=== PATIENT | male | born 1945 | race Caucasian/White ===

== ENCOUNTER → 2019-11-25 10:54 | Outpatient (CLI) | payer OTHER, SELFPAY ==
--- NOTE | ~2019-11-25 | XR_ITS ---
EXAMINATION: XR chest 2V EXAM DATE: 11/25/2019 11:11 INDICATION: Cough, shortness of breath. TECHNIQUE: Frontal and lateral projections of the chest obtained and reviewed. Comparison is made to prior examination from 10/26/2013. FINDINGS: The lungs are clear. There are no pleural effusions. The cardiomediastinal silhouette is within normal limits. There is no pneumothorax suspected. There are mild bony degenerative changes. There are cholecystectomy clips. There is no significant interval change. IMPRESSION: No acute cardiopulmonary findings. Reviewed, dictated and finalized at location B. DING MECHANIC
== END ==
PROVIDERS: PCP Family Medicine; Visit Provider Nurse Practitioner Family
DX: R05 Cough (principal)
CPT/HCPCS: 71046

== ENCOUNTER 2020-01-21 09:14 | Outpatient (CLI) | payer OTHER, SELFPAY ==
--- NOTE | ~2020-01-21 | CT_ITS ---
EXAMINATION: CT soft tissue neck w con DATE: 01/21/2020 10:37 INDICATION: Abnormal results of pulmonary function studies. TECHNIQUE: Computed tomography (CT) of the neck was performed with 75 mL Omnipaque-350 intravenous co ntrast. Automated exposure control and iterative reconstruction technique were employed. The dose-abdon gth product was 511.72 mGy-cm. COMPARISON: Chest CT 05/07/2019 FINDINGS: There is mild emphysema. There is plaque in the proximal internal carotid arteries with les s than 50% stenosis relative to normal distal artery lumen diameters. There are no pathologically enl arged lymph nodes. There is severe cervical spondylosis. IMPRESSION: 1. Mild emphysema. Reviewed, dictated and finalized at location A. IMPRESSION: 1. Mild emphysema.
[2020-01-21 10:24] LABS: Estimated Glomerular Filt Rate > 60
== END 2020-01-21 09:15 | disposition home or self-care (01) ==
PROVIDERS: PCP Family Medicine; Visit Provider Physician Assistant Medical
DX: R94.2 Abnormal results of pulmonary function studies (principal); J43.9 Emphysema, unspecified
CPT/HCPCS: 36415; 70491; Q9967

== ENCOUNTER 2020-02-04 07:05 | Outpatient (CLI) | payer OTHER, SELFPAY ==
--- NOTE | 2020-02-04 07:12 | ECHO_ITS ---
Patient Info Name: Tiago Levi Age: 74 years : 1945 Gender: Male Ht: 71 in Wt: 225 lbs BSA: 2.29 m2 HR: 61 bpm BP: 153 / 91 mmHg Technical Quality: Good Exam Date: 02/04/2020 8:06 AM Exam Location: [facility] Patient Status: Outpatient Admit Date: 02/04/2020 Staff Ordering Physician: Imelda Greene PAC Topology Professor: John Shultz RDCS, RT Attending Provider: Imelda Greene PAC Referring Physician: Jc CALHOUN; Exam Type: CA echo doppler color flow Study Info Indications R06.02 - Shortness of breath Complete two-dimensional, color flow and Doppler transthoracic echocardiogram is performed. Summary 1. Left ventricular chamber dimension is normal. 2. Left ventricular systolic function is normal, estimated at 60-65%. 3. The left ventricular diastolic function is grade I diastolic dysfunction. 4. E/e' 5 is not elevated. 5. There is mild aortic valve regurgitation. 6. The aortic root size at the sinus of Valsalva is mildly dilated at 4.4 cm. Left Ventricle E/e' 5 is not elevated. Left ventricular chamber dimension is normal. Left ventricular systolic function is normal, estimated at 60-65%. The left ventricular diastolic function is grade I diastolic dysfunction. Right Ventricle Right ventricular chamber dimension is normal. Right ventricular systolic function is normal. Left Atria Left atrial chamber dimension is normal. Right Atria Right atrial chamber dimension is normal. Aortic Valve The aortic valve is trileaflet. There is no aortic valve stenosis. There is mild aortic valve regurgitation. Pulmonic Valve There is no pulmonic regurgitation. Mitral Valve There is no mitral valve stenosis. There is no mitral valve regurgitation. Tricuspid Valve There is no tricuspid valve regurgitation. Pericardium/Pleural There is no pericardial effusion. Inferior Vena Cava Normal inferior vena cava with >50% collapse upon inspiration consistent with normal right atrial pressure, 5 mmHg. Aorta The aortic root size at the sinus of Valsalva is mildly dilated at 4.4 cm. Left Ventricular Outflow Tract Name Value Normal LVOT 2D LVOT Diameter 2.1 cm LVOT Doppler LVOT Peak Gradient 3 mmHg LVOT Mean Gradient 2 mmHg LVOT VTI 19 cm LVOT VTI/AV VTI Ratio 0.9 LVOT Stroke Volume 69 ml LVOT CO 4.4 l/min LVOT CI 1.9 l/min/m2 Pulmonic Valve Name Value Normal PV Doppler PV Peak Gradient 3 mmHg Mitral Valve Name Value Normal
== END 2020-02-04 07:06 | disposition home or self-care (01) ==
LOC: ANHCARD 07:07
PROVIDERS: PCP Family Medicine; Visit Provider Physician Assistant Medical
DX: R06.02 Shortness of breath (principal); I35.1 Nonrheumatic aortic (valve) insufficiency
CPT/HCPCS: 93306

== ENCOUNTER → 2022-03-13 15:44 | Outpatient (CLI) | payer MEDICARE, SELFPAY ==
--- NOTE | ~2022-03-13 | XR_ITS ---
EXAMINATION: XR chest 2V DATE: 03/13/2022 16:01 INDICATION: Cough TECHNIQUE: frontal and lateral views of the chest were obtained. COMPARISON: Chest radiograph dated 11/25/2019 FINDINGS: Unchanged small calcified nodule at the right lower lung zone consistent with old granulomatous disea se. Bronchial wall thickening and mild increased interstitial pattern in the lower lung zones could b e due to bronchitis or mild pulmonary edema. No more focal airspace consolidation, pleural effusion o r pneumothorax. The cardiomediastinal silhouette is normal. Mild thoracic kyphosis with mild to moder ate spondylosis. IMPRESSION: 1. Bronchitis versus mild pulmonary edema in the bilateral lower lung zones. Reviewed, dictated and finalized at location B.
== END ==
PROVIDERS: PCP Family Medicine; Visit Provider Nurse Practitioner Family
DX: M47.814 Spondylosis without myelopathy or radiculopathy, thoracic region (principal); M40.204 Unspecified kyphosis, thoracic region; R05.9 Cough, unspecified
CPT/HCPCS: 71046

== ENCOUNTER 2022-03-18 14:07 | Outpatient (CLI) | payer MEDICARE, SELFPAY ==
--- NOTE | ~2022-03-18 | CT_ITS ---
EXAMINATION: CT lung screening DATE: 03/18/2022 14:29 INDICATION: Personal history of tobacco dependent TECHNIQUE: Computed tomography (CT) of the chest was performed without intravenous contrast. The dose -length product was 335.87 mGy-cm. COMPARISON: CT dated 05/07/2019 FINDINGS: There is mild mediastinal lymphadenopathy, likely reactive. There is atherosclerosis of the aorta and coronary arteries. Heart size is normal. Small hiatal hernia. There are cholecystectomy cl ips. No significant pleural or pericardial effusion. There are calcified granulomas in the right midd le lobe. There is a fissural lymph node on the right measuring 6 mm. There are groundglass opacities in the lingula, possibly atelectasis. No endobronchial lesions. There are a few additional smaller 2- 3 mm nodules. Mild thoracic spondylosis. No acute osseous abnormality. IMPRESSION: 1. . Lung-RADS category 2: Benign appearance or behavior. Continue annual screening with noncontrast low-dose chest CT in 12 months. Reviewed, dictated and finalized at location B. IMPRESSION: 1. . Lung-RADS category 2: Benign appearance or behavior. Continue annual scree ambreen with noncontrast low-dose chest CT in 12 months.
== END 2022-03-18 14:08 | disposition home or self-care (01) ==
LOC: ANHIMG 14:11
PROVIDERS: PCP Family Medicine; Visit Provider Nurse Practitioner Family
DX: Z12.2 Encounter for screening for malignant neoplasm of respiratory organs (principal); Z87.891 Personal history of nicotine dependence
CPT/HCPCS: 71271

== ENCOUNTER 2022-06-12 07:33 | Outpatient (CLI) | payer MEDICARE, SELFPAY ==
--- NOTE | 2022-06-12 14:37 | WPDPFTINT ---
PFT Procedure Performed PFT Procedure Performed Spirometry with Pre/Post Bronchodilator Plethysmography (Lung Vol) Diffusing Cap (DLCO) Flow Vol Loop PFT Interpretation This is a pulmonary function test with pre and post-bronchodilator spirometry, plethysmography and diffusing capacity. The test was performed and results interpreted in accordance with the 2019 and 2005 ATS/ERS Task Force guidelines respectively using the Global Lung Function Initiative-2012 reference equations. Patient demonstrated good effort and cooperation. Reproducibility criteria were met. The quality of the pre bronchodilator spirometry maneuver was Grade A and post bronchodilator spirometry maneuver was Grade B. Findings: Spirometry: There is decreased maximal expiratory airflow at all lung volumes with concave expiratory flow tracing. The pre bronchodilator FVC is 3.19 L, 78% predicted. The pre bronchodilator FEV1 is 1.96 L, 64% predicted. The pre bronchodilator FEV1: FVC ratio 61%. The post bronchodilator FVC is 3.37 L, representing a 6% increase. The post bronchodilator FEV1 is 2.07 L, representing a 6% increase. The post bronchodilator FEV1: FVC ratio 61%. Plethysmography: The total lung capacity is 8.49 L, 120% predicted. The functional residual capacity is 4.23 L, 112% predicted. The residual volume is 4.21 L, 165% predicted. Diffusing capacity: The diffusing capacity unadjusted for hemoglobin and carboxyhemoglobin is 22.0, 88% predicted. The diffusing capacity adjusted for alveolar volume is 4.96, 131% predicted. Impression: There is a moderate obstructive abnormality without significant improvement after inhaling a single dose of albuterol. The increase in residual volume is consistent with air trapping from an obstructive abnormality. The diffusing capacity is normal. There are no prior studies for comparison
== END 2022-06-12 07:34 | disposition home or self-care (01) ==
LOC: ANHPFT 07:34
PROVIDERS: PCP Family Medicine; Visit Provider Nurse Practitioner Family
DX: J43.9 Emphysema, unspecified (principal); R05.9 Cough, unspecified; R06.02 Shortness of breath; Z72.0 Tobacco use; R94.2 Abnormal results of pulmonary function studies
CPT/HCPCS: 94060; 94726; 94729

== ENCOUNTER 2022-07-02 07:45 | Outpatient (CLI) | payer MEDICARE, SELFPAY ==
--- NOTE | ~2022-07-02 | CT_ITS ---
EXAMINATION: CTA chest DATE: 07/02/2022 08:42 INDICATION: Aortic root dilatation. TECHNIQUE: Computed tomographic angiography (CTA) of the chest was performed without and with 100 mL Omnipaque-350 intravenous contrast. Automated exposure control and iterative reconstruction technique were employed. The dose-length product was 858.09 mGy-cm. Maximum intensity projection 3D-reconstruc tions of the aorta and other arteries were constructed by the technologist on a separate workstation. COMPARISON: Chest CT 03/18/2022 FINDINGS: There is mild emphysema. Calcified right lung nodules are consistent with old granulomatous disease. There is mild atelectasis bilaterally. No pleural effusion. Cardiomegaly is noted. There ar e coronary artery calcifications. No pericardial effusion. The aorta measures 4.7 cm at the sinuses o f Valsalva, 3.6 cm at the sinotubular junction, 4.0 cm in the mid ascending aorta, 3.3 cm at the aort ic isthmus, and 3.4 cm in the mid descending aorta. There is a small sliding hiatal hernia. There are changes of cholecystectomy. There is moderate thoracic spondylosis. IMPRESSION: 1. Ectasia of ascending aorta. Reviewed, dictated and finalized at location A.
[2022-07-02 08:36] LABS: Estimated Glomerular Filt Rate > 60
== END 2022-07-02 07:46 | disposition home or self-care (01) ==
PROVIDERS: PCP Family Medicine; Visit Provider Internal Medicine Cardiovascular Disease
DX: I77.810 Thoracic aortic ectasia (principal); K44.9 Diaphragmatic hernia without obstruction or gangrene; I25.10 Atherosclerotic heart disease of native coronary artery without angina pectoris; M47.814 Spondylosis without myelopathy or radiculopathy, thoracic region; I51.7 Cardiomegaly
CPT/HCPCS: 71275; Q9967

== ENCOUNTER 2023-03-25 14:59 | Observation (INO) | payer MEDICARE, SELFPAY ==
[2023-03-25] VITALS (30 sets, daily range): BP systolic 100–144; BP diastolic 57–90; PULSE 77–179; RESP 15–26; TEMP 36.3–36.8; O2SAT 93–100; BMI 40.4
--- NOTE | ~2023-03-25 | XR_ITS ---
XR chest 2V 03/25/2023 15:48 Indication: Shortness of breath. Tachycardia. COPD. Procedure: 2 view chest Comparison: 03/13/2022 Findings: Borderline heart size. Right basilar airspace disease. No pleural effusion or pneumothorax. No acute osseous abnormality. Impression: 1: Right basilar airspace disease may represent atelectasis or pneumonia. Reviewed, dictated and finalized at location . Impression: 1: Right basilar airspace disease may represent atelectasis or pneumonia.
--- NOTE | 2023-03-25 15:01 | ECG_ITS ---
Measurements Intervals [place] Rate: 151 P: [place]: 0 QRS: -31 QRSD: 114 T: -16 QT: 290 QTc: 461 Interpretive Statements ATRIAL FIBRILLATION WITH RAPID VENTRICULAR RESPONSE BASELINE ARTIFACT INDETERMINATE AXIS RIGHT BUNDLE BRANCH BLOCK POSSIBLE LEFT VENTRICULAR HYPERTROPHY CANNOT RULE OUT INFERIOR MYOCARDIAL INFARCTION , OF INDETERMINATE AGE ABNORMAL ECG NO PREVIOUS ECG AVAILABLE FOR COMPARISON Electronically Signed On 03-26-2023 11:49:03 CDT by Melquiades Vigil M.D.
--- NOTE | 2023-03-25 15:11 | ED.SOB ---
HPI - SOB/Dyspnea General Chief Complaint: Shortness of Breath/Dyspnea Stated Complaint: SOB Time Seen by Provider: 03/25/23 15:03 History of Present Illness HPI Narrative: Patient is a 77-year-old male with a history of COPD, hypertension, hyperlipidemia presenting with shortness of breath. Patient states that he was at his PCPs office earlier today for evaluation of worsening exertional dyspnea. He was found to be in A-fib RVR so he was advised to come to the ED. Patient denies lightheadedness, palpitations, chest pain, abdominal pain, nausea or vomiting, diarrhea, leg swelling. States that he just feels short of breath if he gets up and walks. 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 Gastroesophageal reflux disease Hyperlipidemia Hypertension Kidney stones Transient ischemic attack Surgical History Surgical History History of appendectomy History of bilateral carpal tunnel release (07/2006) History of cholecystectomy History of colonoscopy with polypectomy (08/2011) History of esophagogastroduodenoscopy (08/2011) History of eye surgery Status post arthroscopic partial medial meniscectomy of right knee (02/2013) Family History Family History Mother Family history of diabetes mellitus in first degree relative Family history of malignant neoplasm of breast in first degree relative Father Family history of throat cancer Sibling No problems noted. Social History Social History Social History: Surrogate medical decision maker: Cassandra Levi, spouse. Code status: Full code. Smoking packs per day: 2 Smoking cigarettes per day: 40.0 Years smoked: 60 Smoking pack-years: 120.00 Smoking status: Former smoker Tobacco type: cigarettes Second hand tobacco smoke exposure: No Smoking end date: 01/22/23 Alcohol intake: former Substance use: former Substance use type: does not use Lack of Transportation: No Lack of Food: Never True Current Housing: I Have Housing Concerned About Future Housing: No Difficulty Paying Gas/Electric Bills: No Difficulty Paying for Meds: No Currently Unemployed: No Education: High School Diploma/GED Difficulty w/ Childcare or Family Care: No Living arrangements: with family Additional living arrangements comments: Lives with spouse in [place]. 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 Spiritual care concerns: No Agree to blood products: Yes Exam Narrative: GENERAL: Well-appearing, well-nourished, and in no acute distress. HEAD: Normocephalic, atraumatic. EYES: PERRLA and EOMI. ENT: Nares clear, no rhinorrhea or epistaxis. Mucous membranes moist. NECK: Supple. CHEST: Clear to auscultation. No respiratory distress. HEART: Tachycardic, irregular rhythm ABDOMEN: Soft, nontender, nondistended EXTREMITIES: Normal range of motion. No edema. SKIN: Warm, dry, no rash. NEURO: No focal deficits. Alert and oriented x3. PSYCH: Normal mood and affect. Course Vital Signs Vital signs: Vital Signs Temperature 98.3 F 03/25/23 14:56 P
[2023-03-25 15:19] LABS: Basophils Absolute Auto 0.1 K/mm3 (0.0-0.1); Basophils Percent Auto 0.7 % (0.2-1.2); Eosinophils Absolute Auto 0.6 K/mm3 (0-0.3); Eosinophils Percent Auto 5.2 % (0-4.4); Hematocrit 51.7 % (42.0-52.0); Hemoglobin 17.2 g/dL (14.0-18.0); Immature Granulocyte Absolute 0.05 K/mm3 (0.00-0.031); Immature Granulocyte Percent A 0.4 % (0-0.5); Lymphocytes Absolute Auto 2.41 K/mm3 (0.9-3.2); Lymphocytes Percent Auto 21.4 % (18.3-44.2); Mean Corpuscular HGB Conc 33.3 g/dl (32-36); Mean Corpuscular Hemoglobin 29.4 pg (26-34); Mean Corpuscular Volume 88.2 fl (80-100); Mean Platelet Volume 9.2 fl (7.4-10.4); Monocytes Absolute Auto 1.2 K/mm3 (0.1-0.6); Monocytes Percent Auto 10.7 % (2.6-8.5); Neutrophils Absolute Auto 6.9 K/mm3 (1.3-6.7); Neutrophils Percent Auto 61.6 % (45.5-73.1); Platelet Count Result 386 k/mm3 (150-375); Red Blood Count 5.86 M/mm3 (4.6-6.20); Red Cell Distribution Width 14.2 % (11.5-14.5); White Blood Count 11.3 K/mm3 (4.5-10.0)
[2023-03-25] MEDS: dilTIAZem 100 MG/100 ML 100 MG/100 ML BAG IV CONT (15:22)
[2023-03-25] MEDS: dilTIAZem HCl INJ 25 MG/5 ML VIAL 10 MG IV PUSH (15:22)
[2023-03-25 15:32] LABS: Alanine Aminotransferase 53 U/L (6-50); Albumin Level 4.7 g/dL (3.5-5.1); Alkaline Phosphatase 70 U/L (38-126); Anion Gap 11 mmol/L (8-16); Aspartate Amino Transferase 47 U/L (17-59); Bilirubin,Total 0.7 mg/dL (0.2-1.3); Blood Urea Nitrogen 15 mg/dL (9-20); Calcium 9.4 mg/dL (8.4-10.2); Carbon Dioxide 30 mmol/L (22-30); Chloride 98 mmol/L (98-107); Estimated CRCL calculation 61 ml/min; Estimated Glomerular Filt Rate 59; Glucose 115 mg/dL (65-110); Potassium 3.5 mmol/L (3.4-5.0); Sodium 139 mmol/L (137-145)
--- NOTE | 2023-03-25 15:59 | PC.NURSE ---
patient's blood pressure soft at this time, decreased cardizem to 10ml/hr. provider aware.
[2023-03-25] MEDS: SODIUM CHLORIDE 0.9% IV 1,000 ML 999 ML IV CONT (16:02)
[2023-03-25 16:46] LABS: NT Pro B Type Natriuretic Pept 65 pg/mL (19.9-100); Troponin I < 0.012 ng/mL (0.000-0.034)
--- NOTE | 2023-03-25 17:18 | PM.IMHP ---
H&P: HPI History of Present Illness Date/Time: 03/25/23 18:30 Chief Complaint: Shortness of breath and rapid heartbeat. Narrative: This is a 77-year-old male with hypertension, hyperlipidemia, diastolic dysfunction, gastric AVM, and GERD who presented to the emergency department via EMS from his primary care provider's office for evaluation of shortness of breath and rapid heartbeat. The patient provides the following history. He quit smoking towards the end of January as he has developed shortness of breath with exertion these past several months. His chronic cough has improved since he quit smoking but unfortunately he continues to have progressive dyspnea on lesser and lesser exertion. It is now to the point where he can get short of breath when walking around the home. He had an appointment with his primary care provider today at which time he was found to be in atrial fibrillation with rapid ventricular response and he was directed to the ED. His heart rate in the ER was as high as 179 beats per minute though that has improved several boluses of Cardizem. He is currently on a Cardizem drip with improvement in his rate. Surprisingly he has no sensations of racing heart or palpitations, he only has the shortness of breath with activity. No syncope, near syncope, sweats, chest pain, pleuritic pain, or nausea. He denies paroxysmal nocturnal dyspnea, orthopnea, and edema. He has no known history of cardiac disease, cardiac dysrhythmia, or sleep apnea. He does not drink alcohol in significant quantities if at all. He does drink coffee daily and on occasion has energy drinks. Review of Systems Review of Systems: Twelve systems were reviewed and are negative except for as per HPI. 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 Gastroesophageal reflux disease Hyperlipidemia Hypertension Kidney stones Transient ischemic attack Surgical History Surgical History (Updated 03/25/23 @ 17:23 by Sonal Mathews PA-C) History of appendectomy History of bilateral carpal tunnel release (07/2006) History of cholecystectomy History of colonoscopy with polypectomy (08/2011) History of esophagogastroduodenoscopy (08/2011) History of eye surgery Status post arthroscopic partial medial meniscectomy of right knee (02/2013) Family History Family History Mother Family history of diabetes mellitus in first degree relative Family history of malignant neoplasm of breast in first degree relative Father Family history of throat cancer Sibling No problems noted. Social History Social History (Updated 03/25/23 @ 21:31 by Sonal Mathews PA-C) Social History: Surrogate medical decision maker: Cassandra Magdalenorona, spouse. Code status: Full code. Smoking packs per day: 2 Smoking cigarettes per day: 40.0 Years smoked: 60 Smoking pack-years: 120.00 Smoking status: Former smoker Tobacco type: cigarettes Second hand tobacco smoke exposure: No Smoking end date: 01/22/23 Alcohol intake: former Substance use: former Substance use type: does not use Lack of Transportation: No Lack of Food: Never True Current Housing: I Have Housing Concerned About Future Housing: No Difficulty Paying Gas/Electric Bills: No Difficulty Paying for Meds: No Currently Unemployed: No Education: High School Diploma/GED Difficulty w/ Childcare or Family Care: No Living arrangements: with family Additional living arrangements comments: Lives with spouse in [place]. 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 Spiritual care concerns: No Agree
--- NOTE | 2023-03-25 17:18 | PC.NURSE ---
Dinner tray ordered for pt. Requested for tray to be sent to .
--- NOTE | 2023-03-25 17:46 | ADMGEN ---
This patient, Tiago Levi, was admitted to IMU Room 204-01 at 1743. Patient/family oriented to hospital policies and general routines including ID bracelet, bed and alarms, visiting hours, pain management, procedures, bathroom and other care routines, personal items, smoking policy, room service/diet, and visiting hours. Information on how to activate the Rapid Response Team has been discussed. Patient/Family are encouraged to report perceived risks to care and to ask questions if they do not understand what they are told or what they should do.
[2023-03-25 18:52] LABS: Troponin I < 0.012 ng/mL (0.000-0.034)
[2023-03-25 21:23] LABS: Troponin I < 0.012 ng/mL (0.000-0.034)
[2023-03-25] MEDS: APIXABAN 5 MG TABLET PO (22:02)
[2023-03-25] MEDS: ZOLPIDEM TARTRATE (*CRX) 5 MG TABLET PO (22:02)
[2023-03-25] MEDS: dilTIAZem 100 MG/100 ML 100 MG/100 ML BAG 10 MG IV CONT (23:17)
--- NOTE | 2023-03-26 05:13 | ECG_ITS ---
Measurements Intervals [place] Rate: 71 P: [place]: 0 QRS: -36 QRSD: 113 T: 214 QT: 421 QTc: 458 Interpretive Statements SINUS RHYTHM MARKED LEFT AXIS DEVIATION [QRS AXIS < -30] INCOMPLETE RIGHT BUNDLE BRANCH BLOCK [90+ ms QRS DURATION, TERMINAL R IN V1/V2, 40+ ms S IN I/aVL/V4/V5/V6] MINIMAL VOLTAGE CRITERIA FOR LVH, CONSIDER NORMAL VARIANT [MEETS CRITERIA IN ONE OF: R(aVL), S(V1), R(V5), R(V5/V6)+S(V1)] NONSPECIFIC ST & T-WAVE ABNORMALITY WARNING: DATA QUALITY MAY AFFECT INTERPRETATION COMPARED TO ECG 03/25/2023 15:01:54 SINUS RHYTHM NOW PRESENT Electronically Signed On 03-27-2023 13:41:08 CDT by Link Feng M.D.
--- NOTE | 2023-03-26 08:00 | ECHO_ITS ---
Patient Info Name: Tiago Levi Age: 77 years : 1945 Gender: Male Accession #: $[id number]$ Ht: 71 in Wt: 289 lbs BSA: 2.62 m2 HR: 59 bpm Heart Rhythm: Sinus Rhythm Technical Quality: Fair Exam Date: 03/26/2023 10:25 AM Exam Location: [facility] Admit Date: 03/25/2023 [employer] Reviewer: Yady Seymour RDCS Exam Type: CA ECHO DOPPLER COLOR FLOW Study Info Indications - atrial fiberalation Complete two-dimensional, color flow and Doppler transthoracic echocardiogram is performed. Summary 1. Complete two-dimensional, color flow and Doppler transthoracic echocardiogram is performed. 2. Left ventricular chamber dimension is normal. 3. Left ventricular systolic function is normal, estimated at 65-70%. 4. There is mildly increased left ventricular wall thickness. 5. Right ventricular systolic function is normal. 6. There is trace aortic valve regurgitation. 7. There is trace mitral valve regurgitation. 8. There is trace tricuspid valve regurgitation. Left Ventricle Left ventricular chamber dimension is normal. Left ventricular systolic function is normal, estimated at 65-70%. There is mildly increased left ventricular wall thickness. Right Ventricle Right ventricular chamber dimension is normal. Right ventricular systolic function is normal. Left Atria Left atrial chamber dimension is normal. Right Atria Right atrial chamber dimension is normal. Atrial Septum Interatrial septum was not well visualized. Aortic Valve The aortic valve is probable trileaflet. There is mild aortic valve sclerosis. There is no aortic valve stenosis. There is trace aortic valve regurgitation. Pulmonic Valve The pulmonic valve is not well visualized. Mitral Valve There is trace mitral valve regurgitation. Tricuspid Valve There is trace tricuspid valve regurgitation. Pericardium/Pleural The pericardium appears epicardial fat pad. There is trivial pericardial effusion. Inferior Vena Cava Inferior vena cava is not well visualized. Aorta The aortic root size at the sinus of Valsalva is normal. Left Ventricular Outflow Tract Name Value Normal LVOT 2D LVOT Diameter 2.1 cm LVOT Doppler LVOT Peak Gradient 7 mmHg LVOT Mean Gradient 4 mmHg LVOT VTI 30 cm LVOT VTI/AV VTI Ratio 1.2 LVOT Stroke Volume 107 ml LVOT CO 20.2 l/min LVOT CI 7.7 l/min/m2 Pulmonic Valve Name Value Normal RVOT Doppler RVOT Peak Gradient 2 mmHg PV Doppler PV Peak Gradient 3 mmHg Mitral Valve Name Value Normal
--- NOTE | 2023-03-26 17:03 | PC.NURSE ---
Paper documentation exists on this patient due to [employer] downtime on 03/26/23 from 00:30 to 16:30.
[2023-03-26 19:45] VITALS: BP 144/83; PULSE 73; RESP 20; TEMP 37.6; O2SAT 97
[2023-03-26 20:00] VITALS: PULSE 60
[2023-03-26] MEDS: APIXABAN 5 MG TABLET PO (20:11)
[2023-03-26] MEDS: ZOLPIDEM TARTRATE (*CRX) 5 MG TABLET PO (21:59)
[2023-03-26 22:00] VITALS: PULSE 71
[2023-03-26 23:38] VITALS: BP 121/53; PULSE 64; RESP 20; TEMP 36.7; O2SAT 98
[2023-03-27] VITALS (8 sets, daily range): BP systolic 104–134; BP diastolic 56–75; PULSE 59–104; RESP 20; TEMP 36.4–36.8; O2SAT 94–97
[2023-03-27] MEDS: APIXABAN 5 MG TABLET PO (09:15)
[2023-03-27] MEDS: ROSUVASTATIN 10 MG TABLET 20 MG PO (09:15)
[2023-03-27] MEDS: hydroCHLOROthiazide 25 MG TABLET 50 MG PO (10:07)
--- NOTE | 2023-03-27 10:19 | PM.PNCARD ---
Progress Note: A&P Assessment and Plan (1) Atrial fibrillation with rapid ventricular response: Code(s): I48.91 - Unspecified atrial fibrillation Status: Acute Assessment and Plan: New diagnosis of atrial fibrillation. Initially in RVR on presentation, required Diltiazem drip, and converted to sinus rhythm. Has remained in sinus rhythm. TSH level normal. Echo with preserved LVEF. Continue PO Diltiazem. Continue Eliquis. Recommend outpatient sleep study. Outpatient follow up with Dr. Heng. Saab to discharge from cardiac standpoint. Recommendations/plan discussed with Hospitalist, Dr. Gregory. Subjective Date/time seen: 03/27/23 10:19 Interval history: Reason for visit: Atrial fibrillation with RVR. HPI: See HPI from initial consult note (Consult note done as paper note due to prolonger EMR downtime on 03/26). Date of service 03/27: Remains in sinus rhythm. Feeling well. No complaints. Wants to go home. Review of Systems Review of Systems: 8 point ROS obtained. Negative, unless stated in HPI. Exam Const: General: comfortable and no acute distress Other: Morbidly obese man HENMT: Mouth: Yes moist mucous membranes Eyes: General: appearance normal, both eyes and all related structures Sclera: sclerae normal Neck: Neck: supple Resp: Effort & Inspection: normal respiratory effort Auscultation: clear to auscultation bilaterally Cardio: Rate: regular rate Rhythm: regular rhythm Heart sounds: no murmurs GI: GI Palp: Yes Soft to palpation and No Tenderness to palpation present (GI) Skin: General skin exam: normal color Neuro: Speech: normal speech Psych: Mental Status: mental status grossly normal Affect: normal affect Objective Data Vital Signs Vital Signs: Vital Signs - 24 hr 03/26/23 19:45 03/26/23 20:00 03/26/23 20:00 Temperature 37.6 C H Pulse Rate 73 60 Respiratory Rate 20 Blood Pressure 144/83 H Pulse Oximetry 97 Oxygen Delivery Room Air 03/26/23 22:00 03/26/23 23:38 03/27/23 00:00 Temperature 36.7 C Pulse Rate 71 64 78 Respiratory Rate 20 Blood Pressure 121/53 L Pulse Oximetry 98 Oxygen Delivery 03/27/23 00:00 03/27/23 02:00 03/27/23 04:06 Temperature 36.4 C L Pulse Rate 59 L 69 Respiratory Rate 20 Blood Pressure 104/56 L Pulse Oximetry 97 Oxygen Delivery Room Air 03/27/23 04:00 03/27/23 04:00 03/27/23 06:00 Temperature Pulse Rate 73 72 Respiratory Rate Blood Pressure Pulse Oximetry Oxygen Delivery Room Air 03/27/23 08:00 03/27/23 08:00 Temperature 36.4 C Pulse Rate 84 Respiratory Rate 20 Blood Pressure 134/70 Pulse Oximetry 94 94 Oxygen Delivery Room Air Intake/Output Intake/Output: Intake & Output 03/24/23 03/25/23 03/26/23 03/27/23 23:59 23:59 23:59 23:59 Intake Total 1000 650 Output Total 800 Balance 1000 -150 Meds/Results Medications: Active Medications Generic Name Dose Route Start Last Admin Trade Name Freq PRN Reason Stop Dose Admin Acetaminophen 650 mg 03/25/23 21:34 Acetaminophen 325 Mg Tablet PO Q6H PRN Mild Pain (1-3) or Fever Apixaban 5 mg 03/25/23 21:40 03/27/23 09:15 Apixaban 5 Mg Tablet PO 5 mg Q12HR AUTUMN Administration Diltiazem HCl 120 mg 03/27/23 09:00 03/27/23 09:15 Diltiazem Hcl Cd 120 Mg Cap.Sa.24h PO 120 mg QAM AUTUMN Administration Hydrochlorothiazide 50 mg 03/26/23 09:00 03/27/23 10:07 Hydrochlorothiazide 25 Mg Tablet PO 50 mg DAILY AUTUMN Administration Perflutren Lipid Microsphere 0 ml 03/25/23 21:34 Perflutren Lipid Microspheres 1.5 Ml Vial Diluted To 10 Ml Total Volume IV PUSH 03/27/23 21:34 ONCE PRN adequate visualization Protocol Perflutren Lipid Microsphere 0 ml 03/26/23 17:01 Perflutren Lipid Microspheres 1.5 Ml Vial Diluted To 10 Ml Total Volume IV PUSH 03/28/23 17:02 ONCE PRN adequate visualization Protocol R
--- NOTE | 2023-03-27 11:50 | PM.DS ---
DS: Admitting Diagnosis Discharge Date 03/27/2023 Admitting Diagnosis Palpitation and shortness of breath DS: Discharge Diagnosis Discharge Diagnosis (1) Atrial fibrillation with rapid ventricular response: Code(s): I48.91 - Unspecified atrial fibrillation Status: Acute (2) Hypertension: Code(s): I10 - Essential (primary) hypertension Status: Acute (3) Hyperlipidemia: Code(s): E78.5 - Hyperlipidemia, unspecified Status: Acute (4) Diastolic dysfunction: Code(s): I51.89 - Other ill-defined heart diseases Status: Acute DS: Summary Hospital Course Hospital Course: This is a 77-year-old male with hypertension, hyperlipidemia, diastolic dysfunction, gastric AVM, and GERD who presented to the emergency department via EMS from his primary care provider's office for evaluation of shortness of breath and rapid heartbeat. The patient provides the following history. He quit smoking towards the end of January as he has developed shortness of breath with exertion these past several months. His chronic cough has improved since he quit smoking but unfortunately he continues to have progressive dyspnea on lesser and lesser exertion. It is now to the point where he can get short of breath when walking around the home. He had an appointment with his primary care provider today at which time he was found to be in atrial fibrillation with rapid ventricular response and he was directed to the ED. His heart rate in the ER was as high as 179 beats per minute though that has improved several boluses of Cardizem. He i was started on Cardizem drip with improvement in his rate. He has no known history of cardiac disease, cardiac dysrhythmia, or sleep apnea. He does not drink alcohol in significant quantities if at all. He does drink coffee daily and on occasion has energy drinks. Echo was performed which showed normal ejection fraction with no significant valvular abnormality. Cardiology back to. Diltiazem drip switched to oral diltiazem. Thais started with his chads Vasc score of 6. Will follow up with Cardiology. Needs sleep apnea evaluation as an outpatient basis. TSH was normal. Electrolytes were adequate. Time Spent with Patient Time attestation: Total time spent providing and/or coordinating discharge services: 35 minutes Exam Narrative: General: Nontoxic-appearing male in the semi-Muhammad position in bed. Weight: 131.4 kg. BMI: 40.4. HEENT: Normocephalic, atraumatic. PERRL, EOMI. Sclera anicteric. Oral mucosa moist. Neck: Supple. Exam limited due to neck circumference, no obvious bruits or JVD. Respiratory: Respirations are nonlabored and he is speaking in full sentences. Lung sounds are somewhat diminished but otherwise clear to auscultation. Cardiovascular: Irregularly irregular rate and rhythm. Gastrointestinal: Abdomen is soft, obese, nontender, and nondistended with positive bowel sounds. Skin: Warm and dry. No rash or lesions on limited exam. Extremities: No cyanosis, clubbing, or edema. Radial and pedal pulses intact. Negative Misha sign bilaterally. No palpable knots or cords. Neurological: Alert. Cranial nerves 2-12 are grossly intact. No gross focal deficits to casual conversation. Psychiatric: Pleasant and cooperative with normal mood and affect. Judgment and insight intact. DS: Data Data Completed and Pending Completed studies during hospitalization: Exam Type: ? ? CA ECHO DOPPLER COLOR FLOW Study Info Indications ?? ? - atrial fiberalation Complete two-dimensional, color flow and Doppler transthoracic echocardiogram is performed. Account #: ? ? [id number] Summary ? 1. Complete two-dimensional, color flow and Doppler transthoracic echocardiogram is performed. ? 2. Left ventricular chamber dimension is normal. ? 3. Left ventricular systolic function is normal, estimated at 65-70%. ? 4. There is mildly increased left ventricular wall thickness. ? 5. Right ventr
== END 2023-03-27 12:29 | disposition home or self-care (01) ==
LOC: ANHED 16:15 → ANHIMU 03-27 11:50
PROVIDERS: Emergency Medicine; Admitting Provider Hospitalist; Emergency Provider Emergency Medicine; PCP Family Medicine; Visit Provider Internal Medicine
DX: I48.91 Unspecified atrial fibrillation (principal); I11.9 Hypertensive heart disease without heart failure; E78.5 Hyperlipidemia, unspecified; I47.1 Supraventricular tachycardia; I45.10 Unspecified right bundle-branch block; J44.9 Chronic obstructive pulmonary disease, unspecified; R05.9 Cough, unspecified; R06.09 Other forms of dyspnea; Z87.442 Personal history of urinary calculi; K21.9 Gastro-esophageal reflux disease without esophagitis; E66.9 Obesity, unspecified; Z68.41 Body mass index [BMI] 40.0-44.9, adult; R05.3 Chronic cough; Q27.39 Arteriovenous malformation, other site; R94.31 Abnormal electrocardiogram [ECG] [EKG]; Z87.891 Personal history of nicotine dependence; Z86.73 Personal history of transient ischemic attack (TIA), and cerebral infarction without residual deficits; Z79.899 Other long term (current) drug therapy
CPT/HCPCS: 36415; 71046; 80053; 83880; 84443; 84484; 85025; 93005; 93306; 94762; 96361; 96365; 96366; 96376; 99285; A9270; G0378; J7030

== ENCOUNTER 2023-04-30 07:40 | Outpatient (CLI) | payer MEDICARE, SELFPAY ==
--- NOTE | ~2023-04-30 | NM_ITS ---
EXAMINATION: NM toni stress w perfusion DATE: 04/30/2023 10:15 INDICATION: Other forms of dyspnea. TECHNIQUE: Rest images were obtained following intravenous administration of 10 mCi Tc99m tetrofosmin (Myoview). The patient was infused intravenously with Lexiscan (regadenoson). Then, 34.5 mCi Tc99m t etrofosmin (Myoview) was administered intravenously, and supine and prone stress images were obtained . Data was reconstructed into short axis and horizontal and vertical long axis SPECT images. Gated SP ECT images were also obtained. COMPARISON: Chest CT 07/02/2022 FINDINGS: There is no definite reversible or fixed perfusion abnormality to suggest ischemia or infar ction. There is no segmental wall motion abnormality. Left ventricular ejection fraction measures > 70%. IMPRESSION: 1. No definite ischemia or infarct. 2. Normal left ventricular ejection fraction measuring > 70%. Reviewed, dictated and finalized at location A.
--- NOTE | 2023-04-30 08:26 | EST_ITS ---
Patient Info Name: Tiago Levi Age: 77 years : 1945 Gender: Male Ht: 71 in Wt: 290 lbs BSA: 2.62 m2 HR: 74 bpm BP: 132 / 80 mmHg Heart Rhythm: Right Bundle Branch Block Exam Date: 04/30/2023 8:45 AM Exam Location: [facility] Stress Patient Status: Outpatient Admit Date: 04/30/2023 Staff Ordering Physician: Frederick Salinas DO Attending Provider: Frederick Salinas DO Exercise Technologist: Irais Nichole CT Exercise Physician: Frederick Salinas DO Exam Type: CA stress toni w NM Study Info Indications R06.09 - Other forms of dyspnea A regadenoson stress test was performed. Summary 1. 1. Negative lexiscan stress test for ischemic ST changes by ECG criteria. 2. 2. Stable hemodynamics throughout the test. 3. 3. Nuclear scan to follow and will be reported separately. Please correlate with it. 4. 4. Patient informed of the above results. Rest HR: 74 bpm Peak HR: 84 bpm Rest Sys BP: 132 mmHg Peak Sys BP: 122 mmHg Max Pred HR: 144 bpm % Max Pred HR: 58 % Target HR: 122 bpm Max RPP: 10,248 bpm*mmHg Termination Reason: Completed protocol Cardiac Symptoms: Shortness of breath Rest Blount BP: 80 mmHg Peak Blount BP: 76 mmHg Resting ECG Sinus rhythm, RBBB. Stress ECG No ST changes. Arrhythmias None. Report Signatures
== END 2023-04-30 07:41 | disposition home or self-care (01) ==
PROVIDERS: PCP Family Medicine; Visit Provider Internal Medicine Cardiovascular Disease
DX: R06.09 Other forms of dyspnea (principal)
CPT/HCPCS: 78452; 93017; A9502; J2785

== ENCOUNTER 2023-09-26 11:53 | Outpatient (CLI) | payer MEDICARE, SELFPAY ==
[2023-09-26 12:38] LABS: Basophils Absolute Auto 0.1 K/mm3 (0.0-0.1); Basophils Percent Auto 0.6 % (0.2-1.2); Eosinophils Absolute Auto 0.5 K/mm3 (0-0.3); Eosinophils Percent Auto 5.5 % (0-4.4); Hematocrit 37.3 % (42.0-52.0); Hemoglobin 10.9 g/dL (14.0-18.0); Immature Granulocyte Absolute 0.02 K/mm3 (0.00-0.031); Immature Granulocyte Percent A 0.2 % (0-0.5); Lymphocytes Absolute Auto 1.69 K/mm3 (0.9-3.2); Lymphocytes Percent Auto 20.1 % (18.3-44.2); Mean Corpuscular HGB Conc 29.2 g/dl (32-36); Mean Corpuscular Hemoglobin 23.6 pg (26-34); Mean Corpuscular Volume 80.7 fl (80-100); Mean Platelet Volume 9.5 fl (7.4-10.4); Monocytes Absolute Auto 0.9 K/mm3 (0.1-0.6); Monocytes Percent Auto 10.7 % (2.6-8.5); Neutrophils Absolute Auto 5.3 K/mm3 (1.3-6.7); Neutrophils Percent Auto 62.9 % (45.5-73.1); Platelet Count Result 376 k/mm3 (150-375); Red Blood Count 4.62 M/mm3 (4.6-6.20); Red Cell Distribution Width 16.4 % (11.5-14.5); White Blood Count 8.4 K/mm3 (4.5-10.0)
[2023-09-26 12:53] LABS: Anion Gap 8 mmol/L (8-16); Blood Urea Nitrogen 23 mg/dL (9-20); Calcium 8.9 mg/dL (8.4-10.2); Carbon Dioxide 32 mmol/L (22-30); Chloride 98 mmol/L (98-107); Estimated Glomerular Filt Rate 59; Glucose 126 mg/dL (65-110); Potassium 3.5 mmol/L (3.4-5.0); Sodium 138 mmol/L (137-145)
== END 2023-09-26 11:54 | disposition home or self-care (01) ==
PROVIDERS: PCP Family Medicine; Visit Provider Family Medicine
DX: I48.0 Paroxysmal atrial fibrillation (principal); I51.89 Other ill-defined heart diseases
CPT/HCPCS: 36415; 80048; 84443; 85025

== ENCOUNTER 2023-09-26 12:23 | Outpatient (CLI) | payer MEDICARE, SELFPAY ==
--- NOTE | ~2023-09-26 | XR_ITS ---
Clinical Indication: Emphysema PA and lateral views of the chest: Comparison: 03/25/2023 Findings: Probable calcified right basilar granuloma. No other consolidation or pleural effusion evid ent.. Cardiomediastinal silhouette is within normal limits. Bones and soft tissues are unremarkable. Impression: No acute abnormality seen. Reviewed, dictated and finalized at [facility]. 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
== END 2023-09-26 12:24 | disposition home or self-care (01) ==
PROVIDERS: PCP Family Medicine; Visit Provider Family Medicine
DX: J43.9 Emphysema, unspecified (principal)
CPT/HCPCS: 36415; 71046; 80048; 84443; 85025

== ENCOUNTER 2023-12-17 14:15 | Outpatient (CLI) | payer MEDICARE, SELFPAY ==
--- NOTE | ~2023-12-17 | XR_ITS ---
EXAMINATION: XR chest 2V DATE: 12/17/2023 14:43 INDICATION: Other forms of dyspnea. TECHNIQUE: Frontal and lateral views of the chest were obtained. COMPARISON: Chest 2 views 09/26/2023, chest CT 07/02/2022 FINDINGS: Calcified right lung nodules are consistent with old granulomatous disease. No pleural effu joshua or pneumothorax. The heart size is normal. There is mild chronic anterior wedging of multiple ve rtebral bodies. IMPRESSION: 1. No acute cardiopulmonary disease. Reviewed, dictated and finalized at location E. TER [employer]URAL
[2023-12-17 14:40] LABS: Hematocrit 38.8 % (42.0-52.0); Hemoglobin 11.4 g/dL (14.0-18.0); Mean Corpuscular HGB Conc 29.4 g/dl (32-36); Mean Corpuscular Hemoglobin 22.8 pg (26-34); Mean Corpuscular Volume 77.4 fl (80-100); Mean Platelet Volume 9.1 fl (7.4-10.4); Platelet Count Result 363 k/mm3 (150-375); Red Blood Count 5.01 M/mm3 (4.6-6.20); Red Cell Distribution Width 17.1 % (11.5-14.5)
[2023-12-17 14:52] LABS: Alanine Aminotransferase 26 U/L (6-50); Albumin Level 4.5 g/dL (3.5-5.1); Alkaline Phosphatase 62 U/L (38-126); Anion Gap 11 mmol/L (8-16); Aspartate Amino Transferase 28 U/L (17-59); Bilirubin,Total 0.7 mg/dL (0.2-1.3); Blood Urea Nitrogen 26 mg/dL (9-20); Calcium 9.1 mg/dL (8.4-10.2); Carbon Dioxide 25 mmol/L (22-30); Chloride 101 mmol/L (98-107); Estimated Glomerular Filt Rate > 60; Glucose 96 mg/dL (65-110); Potassium 3.4 mmol/L (3.4-5.0); Sodium 137 mmol/L (137-145)
[2023-12-17 14:58] LABS: NT Pro B Type Natriuretic Pept 133 pg/mL (19.9-100)
[2023-12-17 15:31] LABS: Hemoglobin A1C 5.9 % (<5.7)
[2023-12-17 20:16] LABS: Iron 53 ug/dL (49-181)
[2023-12-17 20:25] LABS: Percent Iron Saturation 11 % (20-50)
[2023-12-17 20:54] LABS: Ferritin 6.91 ng/mL (11.1-264)
== END 2023-12-17 14:16 | disposition home or self-care (01) ==
LOC: ANHLAB 14:21
PROVIDERS: PCP Family Medicine; Referring Provider Nurse Practitioner Family; Visit Provider Physician Assistant
DX: D64.9 Anemia, unspecified (principal); I10 Essential (primary) hypertension; R73.09 Other abnormal glucose; I48.91 Unspecified atrial fibrillation; I51.89 Other ill-defined heart diseases; R06.09 Other forms of dyspnea; F17.210 Nicotine dependence, cigarettes, uncomplicated
CPT/HCPCS: 36415; 71046; 80053; 82728; 83036; 83540; 83550; 83880; 85027

== ENCOUNTER 2024-12-23 12:10 | Outpatient (CLI) | payer MEDICARE, SELFPAY ==
[2024-12-23 12:45] LABS: Basophils Absolute Auto 0.1 K/mm3 (0.0-0.1); Basophils Percent Auto 0.6 % (0.2-1.2); Eosinophils Absolute Auto 0.4 K/mm3 (0-0.3); Eosinophils Percent Auto 4.5 % (0-4.4); Hematocrit 43.4 % (42.0-52.0); Hemoglobin 13.9 g/dL (14.0-18.0); Immature Granulocyte Absolute 0.02 K/mm3 (0.00-0.031); Immature Granulocyte Percent A 0.2 % (0-0.5); Lymphocytes Absolute Auto 1.64 K/mm3 (0.9-3.2); Lymphocytes Percent Auto 18.5 % (18.3-44.2); Mean Corpuscular Hemoglobin 26.4 pg (26-34); Mean Corpuscular Volume 82.5 fl (80-100); Mean Platelet Volume 9.4 fl (7.4-10.4); Monocytes Absolute Auto 0.9 K/mm3 (0.1-0.6); Monocytes Percent Auto 9.8 % (2.6-8.5); Neutrophils Absolute Auto 5.9 K/mm3 (1.3-6.7); Neutrophils Percent Auto 66.4 % (45.5-73.1); Platelet Count Result 327 k/mm3 (150-375); Red Blood Count 5.26 M/mm3 (4.6-6.20); Red Cell Distribution Width 16.2 % (11.5-14.5); White Blood Count 8.9 K/mm3 (4.5-10.0)
[2024-12-23 13:07] LABS: Alanine Aminotransferase 31 U/L (6-50); Albumin Level 4.4 g/dL (3.5-5.1); Alkaline Phosphatase 58 U/L (38-126); Anion Gap 12 mmol/L (4-12); Aspartate Amino Transferase 29 U/L (17-59); Bilirubin,Total 0.8 mg/dL (0.2-1.3); Blood Urea Nitrogen 19 mg/dL (9-20); Carbon Dioxide 28 mmol/L (22-30); Chloride 98 mmol/L (98-107); Cholesterol 109 mg/dL (0-200); Estimated Glomerular Filt Rate > 60; Glucose 118 mg/dL (65-110); HDL Direct 34 mg/dL; Potassium 3.3 mmol/L (3.4-5.0); Sodium 138 mmol/L (137-145); Triglycerides 147 mg/dL (<150)
[2024-12-23 13:17] LABS: LDL Cholesterol Direct 47 mg/dL
== END 2024-12-23 12:11 | disposition home or self-care (01) ==
LOC: ANHLAB 12:12
PROVIDERS: PCP Family Medicine; Visit Provider Internal Medicine Cardiovascular Disease
DX: E78.5 Hyperlipidemia, unspecified (principal); D50.9 Iron deficiency anemia, unspecified
CPT/HCPCS: 36415; 80053; 80061; 85025